=== PATIENT | male | born 1955 | race Hispanic/Latino ===

== ENCOUNTER 2019-06-28 18:58 | Emergency (ER) | payer OTHER ==
[~2019-06-28] VITALS: Ht 172.7 cm; Wt 88.9 kg
[~2019-06-28 18:58] MED LIST: Z.0.ENALAPRIL MALEA2 PO
[2019-06-28] MEDS ORDERED: KETOROLAC TROMETHAMINE 30 MG/ML VIAL IV ONE (19:23)
[2019-06-28] MEDS ORDERED: SODIUM CHLORIDE 0.9% 1000ML 1,000 ML IV ONE (19:30)
[2019-06-28 19:41] LABS: BASOPHILS % 0.3 % (0.0-1.0); EOSINOPHILS # (AUTO) 0.1 (0.0-0.4); EOSINOPHILS % 0.8 % (0.0-6.0); HEMATOCRIT 43.3 % (38.2-49.6); HEMOGLOBIN 14.7 g/dL (14.0-18.0); LYMPHOCYTES # (AUTO) 2.2 (1.0-3.2); LYMPHOCYTES % 23.1 % (18.0-39.1); MEAN CORPUSCULAR HEMOGLOBIN 30.1 pg (28-32); MEAN CORPUSCULAR HGB CONC 33.9 g/dL (31-35); MEAN CORPUSCULAR VOLUME 88.7 fL (81-99); MONOCYTES # (AUTO) 0.8 (0.2-0.8); NEUTROPHILS # (AUTO) 6.5 (2.1-6.9); NEUTROPHILS % 67.6 % (38.7-80.0); PLATELET COUNT 166 x10e3/uL (140-360); RED BLOOD COUNT 4.88 x10e6/uL (4.3-5.7)
[2019-06-28 19:45] LABS: BILIRUBIN,URINE NEGATIVE (NEGATIVE); CLARITY,URINE CLOUDY (CLEAR); KETONES,URINE TRACE (NEGATIVE); LEUKOCYTE ESTERASE ,URINE NEGATIVE (NEGATIVE); NITRITE,URINE POSITIVE (NEGATIVE); PROTEIN,URINE DIPSTICK 2+ (NEGATIVE); URINE UROBILINOGEN 0.2 mg/dL (0.2 - 1)
[2019-06-28 19:49] LABS: COLOR,URINE AMBER (YELLOW)
[2019-06-28 19:57] LABS: ALBUMIN 4.4 g/dL (3.5-5.0); ALBUMIN/GLOBULIN RATIO 1.6 (0.8-2.0); ANION GAP 16.2 mmol/L (8-16); CALCIUM 9.8 mg/dL (8.4-10.2); CREATININE, SERUM 1.23 mg/dL (0.72-1.25); POTASSIUM 4.2 mmol/L (3.5-5.1)
[2019-06-28 20:02] LABS: BACTERIA,URINE MODERATE /HPF; EPITHELIAL CELLS,URINE FEW /LPF; RBC,URINE >50 /HPF (0-5)
[2019-06-28] MEDS ORDERED: CEFTRIAXONE SOD 1 GM/NS 50 ML 50 ML IV SCH (20:15)
--- NOTE | 2019-06-28 20:59 | NUR ---
RAD CALLED FOR UPDATE ON CT REPORT STATUS, [employer] WILL CALL
--- NOTE | 2019-06-28 21:32 | NUR ---
ER ATTEMPTED TO CALL RADIOLOGIST DIRECT ([phone]), NO ANSWER
--- NOTE | 2019-06-28 21:55 | NUR ---
BETO JORDAN SPEAKING TO DR. NAVARRO, RADIOLOGIST, AT THIS TIME
--- NOTE | 2019-06-28 22:21 | Diagnostic Imaging Report ---
EXAM: CT Abdomen and Pelvis WITHOUT contrast INDICATION: Urinating blood. Right flank and testicular pain. COMPARISON: None. TECHNIQUE: Abdomen and pelvis were scanned utilizing a multidetector helical scanner from the lung base to the pubic symphysis without administration of IV contrast. Absence of intravenous contrast decreases sensitivity for detection of focal lesions and vascular pathology. Coronal and sagittal reformations were obtained. Routine protocol was performed. IV CONTRAST: None. ORAL CONTRAST: Water RADIATION DOSE: Total DLP: 461.26 mGy*cm Estimated effective dose: (DLP x 0.015 x size factor) mSv COMPLICATIONS: None FINDINGS: At the time of this interpretation, the examination is on exceptions list (demographics not confirmed). Reading radiologist informed of the case at 9:50 PM 06/28/19. LINES and TUBES: None. LOWER THORAX: Unremarkable HEPATOBILIARY: Hepatic steatosis. No focal hepatic lesions. No biliary ductal dilation. GALLBLADDER: No radio-opaque stones or sludge. No wall thickening. SPLEEN: No splenomegaly. PANCREAS: No focal masses or ductal dilatation. ADRENALS: No adrenal nodules KIDNEYS/URETERS: No hydronephrosis. Low-attenuation mass with punctate foci of calcification appears to arise from the lower pole of the right kidney abutting the right renal sinus, measuring 5.9 x 5.4 cm on image 77 series 3; it cannot be further characterized due to lack of contrast. There is mild right pelvocaliectasis. GI TRACT: No abnormal distention, wall thickening, or evidence of bowel obstruction. Appendix is normal. PELVIC ORGANS/BLADDER: The prostate measures 5.6 x 4.8 cm. LYMPH NODES: No lymphadenopathy. VESSELS: Unremarkable. PERITONEUM / RETROPERITONEUM: No free air or fluid. BONES: Unremarkable. SOFT TISSUES: Small fat-containing right inguinal hernia. IMPRESSION: 1. 5.9 cm complex cystic mass arising from the lower pole of the right kidney cannot be further characterized due to the lack of contrast, however, concerning for neoplasm. Recommend further evaluation with CT abdomen and pelvis renal mass protocol. 2. Discussed with Dr. Anderson at 9:55 PM on 06/28/2019. Signed by: Dr. Maria G Quan M.D. on 06/28/2019 10:17 PM
[2019-06-28] MEDS ORDERED: TYLENOL WITH C1 EACH PO (22:25)
[2019-06-28] MEDS ORDERED: ULTRAM50 MG PO (22:25)
[2019-06-28] MEDS ORDERED: LEVAQUIN500 MG PO (22:25)
[2019-06-28] MEDS ORDERED: FLOMAX0.4 MG PO (22:25)
== END 2019-06-28 22:42 | disposition home or self-care (01) ==
LOC: ER 18:58
DX: R31.0 Gross hematuria (principal)
CPT/HCPCS: 36415; 74176; 80053; 81001; 85025; 87086; 96374; 99284; J0696; J1885; J7030